=== PATIENT | female | born 1955 | race Caucasian/White ===

== ENCOUNTER → 2016-08-22 | Outpatient (CLI) | payer OTHER ==
[2016-08-22 09:45] LABS: BASOPHILS % (AUTO) 0 % (0-2); EOSINOPHILS # (AUTO) 0.2 10^3uL; EOSINOPHILS % (AUTO) 3 % (0-4); LYMPHOCYTES # (AUTO) 2.1 X10^3; MEAN CORPUSCULAR HEMOGLOBIN 29.9 PG (26.0-34.0); MEAN CORPUSCULAR HGB CONC 32.7 g/dL (31.0-37.0); MEAN CORPUSCULAR VOLUME 92 FL (80-100); MEAN PLATELET VOLUME 9.3 FL (6.0-9.5); MONOCYTES # (AUTO) 0.5 X10^3; MONOCYTES % (AUTO) 7 % (3-11); NEUTROPHILS # (AUTO) 4.1 X10^3; NEUTROPHILS % (AUTO) 59 % (51-67); PLATELET COUNT 338 10^3uL (150-450); WHITE BLOOD COUNT 6.97 10^3uL (4.0-11.0)
[2016-08-22 10:06] LABS: ALBUMIN 4.1 g/dL (3.4-5.0); ALKALINE PHOSPHATASE 125 U/L (38-126); ANION GAP 12.8 MEQ/L (3-15); BUN/CREATININE RATIO 18 (10-20); CALCULATED IONIZED CALCIUM 4.4 mg/dL (3.8-4.6); CREATINE KINASE 42 U/L (30-135); TOTAL PROTEIN 6.7 g/dL (6.4-8.5)
--- NOTE | 2016-08-22 10:52 | Diagnostic Imaging Report ---
INDICATION: Annual physical. History of smoking. EXAMINATION: Two-view chest on 08/22/2016. COMPARISON: 08/27/2015. FINDINGS: The heart and pulmonary vasculature appear unremarkable. There is a small density at the right lung base, stable from previous imaging. The remaining lungs are clear. There are no infiltrates or effusions. There is no pneumothorax. IMPRESSION: Stable chest. No acute process. Dictated by: Dictated on workstation # [id number]
== END ==
LOC: LAB 09:33
PROVIDERS: ATTEND Family Medicine
DX: Z00.00 Encounter for general adult medical examination without abnormal findings (principal)
CPT/HCPCS: 36415; 71020; 80053; 80061; 82550; 82977; 83036; 84436; 84443; 85025; 93005

== ENCOUNTER → 2016-08-25 | Outpatient (CLI) | payer OTHER ==
--- NOTE | 2016-08-26 14:28 | Diagnostic Imaging Report ---
INDICATION: Screening mammogram. COMPARISON: 09/10/2014, 08/29/2013. FAMILY HISTORY: Negative. TECHNIQUE: Bilateral digital mammography was performed with computer assisted detection (CAD) software utilization. PERSONAL HISTORY: There are no reported clinical signs and/or symptoms of breast cancer. FINDINGS: The breast tissue pattern is composed of a moderate amount of radiographically dense breast tissue. Diffuse bilateral microcalcifications are present, unchanged. RIGHT BREAST: No dominant mass, suspicious microcalcification, or other significant abnormality is identified. LEFT BREAST: A 5 mm nodule is present in the lateral aspect of the breast at posterior depth, possibly overlying the pectoralis muscle on the MLO view. IMPRESSION: Additional mammographic views of the left breast are recommended. Ultrasound may be needed as well. ACR BI-RADS Category 0 : Needs additional imaging Result letter will be mailed to the patient. Note: At least 10% of breast cancer is not imaged by mammography. Dictated by: Dictated on workstation # [id number]
== END ==
LOC: RAD 09:13
PROVIDERS: ATTEND Family Medicine
DX: Z12.31 Encounter for screening mammogram for malignant neoplasm of breast (principal); R92.2 Inconclusive mammogram

== ENCOUNTER → 2016-09-14 | Outpatient (CLI) | payer OTHER ==
--- NOTE | 2016-09-14 16:32 | Diagnostic Imaging Report ---
DIGITAL MAMMO LT DIAG W/CAD COMPARISON: 08/25/2016 and 09/10/2014. INDICATION: Further evaluation of focal asymmetry in the lateral left breast. TECHNIQUE: Digital diagnostic mammography of left breast was performed with a computer-aided detection (CAD) system. Targeted ultrasound was performed and dictated separately. FINDINGS: Additional mammographic views of the left breast demonstrate persistence of the 5 mm isodense well-circumscribed mass in the lateral posterior breast near the chest wall. Biopsy clip marker in the left upper outer quadrant is also again noted. Ultrasound of the posterior left outer breast demonstrated a focal island of what appears to be normal fibroglandular tissue. This has similar dimensions measuring approximately 5 mm, and likely accounts for the mammogram abnormality. IMPRESSION: 1. The isodense mass in the posterolateral left breast likely represents a focus of normal fibroglandular tissue as seen by ultrasound. Recommend the patient return in six months for diagnostic left breast mammogram to followup this lesion. Ultrasound order should also be placed, and it can be determined at the time of the mammogram if ultrasound imaging is needed. ACR BI-RADS Category 3: Probably benign findings. Result letter will be mailed to the patient. Note: At least 10% of breast cancer is not imaged by mammography. Dictated by: Dictated on workstation # [id number]
--- NOTE | 2016-09-14 17:28 | Diagnostic Imaging Report ---
PROCEDURE: US Breast limited, left. TECHNIQUE: Multiple realtime grayscale images were obtained over the left breast in various projections. INDICATION: Further evaluation of left breast mass. COMPARISON: Diagnostic mammogram performed concurrently. FINDINGS: Targeted ultrasound of the lateral left breast at the 3 o'clock position was performed. In this region, there is a dense band of fibroglandular tissue. Within this area of fibroglandular tissue, there is a nodular focus of normal fat or minimally complicated cyst, which measures approximately 4 mm and likely corresponds to the mass seen on mammogram. No concerning solid or cystic mass lesion. IMPRESSION: 1. No concerning solid or cystic mass lesion to suggest neoplasm in the left breast. 2. The mass seen on mammogram likely corresponds to a focus of normal fibroglandular tissue or minimally complicated cyst. Recommend followup left breast diagnostic mammogram in six months. Ultrasound order should be placed, and at that, time it can be determined if followup ultrasound of this region is necessary. ACR BI-RADS Category 3: Probably benign findings. Dictated by: Dictated on workstation # [id number]
== END ==
LOC: RAD 12:39
PROVIDERS: ATTEND Family Medicine
DX: N60.12 Diffuse cystic mastopathy of left breast (principal)
CPT/HCPCS: 76642; G0206